=== PATIENT | male | born 1955 | race Caucasian/White ===

== ENCOUNTER 2022-01-16 08:09 | Emergency (ER) | payer MEDICARE ==
[~2022-01-16] VITALS: Ht 182.9 cm; Wt 90.7 kg
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
[2022-01-16 08:28] LABS: HEMATOCRIT 41.9 % (42.0-52.0); HEMOGLOBIN 12.8 gm/dL (14.0-18.0); MCH 30.6 pg (26.0-34.0); MCHC 30.6 g/dL (28.0-37.0); MCV 99.8 fL (80.0-100.0); PLATELET COUNT 163 thou/uL (150-400); RDW 15.2 % (10.5-14.5); WBC 7.9 thou/uL (4.0-11.0)
[2022-01-16 08:37] LABS: CREATININE 1.1 mg/dL (0.7-1.3); POTASSIUM 4.7 mmol/L (3.5-5.1)
[2022-01-16 08:47] LABS: ALBUMIN 2.5 g/dL (3.4-5.0); TOTAL BILIRUBIN 0.5 mg/dL (0.2-1.0); TOTAL PROTEIN 5.1 g/dL (6.4-8.2)
[2022-01-16 08:52] LABS: ABSOLUTE NEUTROPHILS 1.7 thou/uL (1.4-8.2); ATYPICAL LYMPHS 35 %
[2022-01-16 08:53] LABS: PLATELET ESTIMATE NORMAL
== END 2022-01-16 08:21 ==
LOC: ER 08:09
PROVIDERS: Emergency Medicine
DX: I46.9 Cardiac arrest, cause unspecified (principal); I49.01 Ventricular fibrillation; E11.9 Type 2 diabetes mellitus without complications